=== PATIENT | male | born 1970 | race Caucasian/White ===

== ENCOUNTER 2018-07-26 14:03 | Emergency (ER) | payer BC ==
[2018-07-26] MEDS ORDERED: Sodium Chloride 0.9% 10 ML Syringe FLUSH PRN (14:10)
[2018-07-26] MEDS ORDERED: Sodium Chloride 0.9% 2.5 ML Syringe FLUSH PRN (14:10)
[2018-07-26 14:55] LABS: CHLORIDE,CL 106 mmol/L (98-107); SODIUM,NA 143 mmol/L (136-148)
--- NOTE | 2018-07-26 15:38 | CR ---
INDICATION: Pain/shortness of breath. TECHNIQUE: AP portable chest x-ray. FINDINGS: Plate and screw fixation lower cervical spine. Heart size normal. Shallow inspiration. No focal infiltrate or consolidation in either lung. Minimal eventration right hemidiaphragm. Fat pad lateral lower cardiac border. Remainder negative. Dictated by Kervin Ochoa MD @ Jul 26 2018 3:37PM Signed by Dr. Kervin Ochoa @ Jul 26 2018 3:37PM
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
[2018-07-26] MEDS ORDERED: Iopamidol 755 MG/ML 500 ML Multipack Bottle IVPUSH STA (17:20)
--- NOTE | 2018-07-27 11:39 | CT ---
EXAM DATE: 07/26/18 PATIENT'S AGE: 48 Patient: BUBBA VERDIN Facility: [facility] Site Site : [id number] Study: CT-Abdomen/Pelvis W CONT [id number]/12/2019 3:53:11 PM Ordering Physician: ALDEN TITUS MD Final Report: INDICATION: Pain. Pain in right mid abdomen for 3 weeks. TECHNIQUE: CT of the abdomen and pelvis performed after the IV injection of 100 mL of Isovue 370 FINDINGS: Moderate compression anterior wedging T12 vertebral body likely chronic. Moderate diffuse fatty infiltration of liver. Focal nodular fatty sparing in the liver adjacent to gallbladder. Mild wall thickening involving the distal esophagus nonspecific but may be inflammatory. Small low-density lesion inferior posterior spleen. Tiny cyst in the left kidney. Small periumbilical hernia in the lower anterior abdominal/upper anterior pelvic wall containing only fat. Colonic diverticulosis without evidence diverticulitis. Mild hazy increased density in the central abdominal mesentery consistent with a panniculitis. Moderate wall thickening involving the urinary bladder may be related to incomplete distention. Appendix is normal. Small lymph nodes in the right lower quadrant mesentery should be reactive in nature. Remainder negative. IMPRESSION: 1. No acute disease and abdomen or pelvis. 2. Mild wall thickening involving the distal esophagus may be inflammatory. 3. Colonic diverticulosis without evidence diverticulitis. 4. Small ventral abdominal/pelvic wall hernia in the periumbilical region containing only fat. Other findings as above. Please note that all CT scans at this facility use dose modulation, iterative reconstruction, and/or weight-based dosing when appropriate to reduce radiation dose to as low as reasonably achievable. Dictated by Kervin Ochoa MD @ Jul 26 2018 4:06PM Signed by: Kervin Ochoa MD @07/26/2018 4:13:25 PM (Electronic Signature) Report Signed by Proxy. CHRIS
== END 2018-07-26 17:02 | disposition home or self-care (01) ==
LOC: MW.ED 14:03
DX: R10.31 Right lower quadrant pain (principal); R10.11 Right upper quadrant pain; I10 Essential (primary) hypertension; I25.2 Old myocardial infarction
CPT/HCPCS: 71045; 74177; 80053; 81003; 83690; 83880; 84484; 85025; 93005; 99285; Q9967

== ENCOUNTER 2018-08-18 09:45 | Day surgery (SDC) | payer BC ==
[~2018-08-18 09:45] MED LIST: Lactated Ringers 1,000 ML IV SCH; Midazolam 1 MG/ML 2 ML SDV ONE; Propofol 200 MG/20 ML SDV ONE; Sodium Chloride 0.9% 10 ML SDV IV PRN; Sodium Chloride 0.9% 10 ML Syringe FLUSH PRN; Sodium Chloride 0.9% 2.5 ML Syringe FLUSH PRN; fentaNYL 100 MCG/2 ML SDV ONE
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
[2018-08-18] MEDS ORDERED: Propofol 200 MG/20 ML SDV ONE (13:12)
--- NOTE | 2018-08-18 13:58 | PCM.OPNOTE ---
- General Post-Op/Procedure Note Date of Surgery/Procedure: 08/18/18 Operative Procedure(s): Diagnostic EGD and colonoscopy Findings: Extensive diverticulosis throughout the colon. Hepatic flexure polyp. Sigmoid colon polyp. Normal EGD Pre Op Diagnosis: Epigastric abdominal pain, diverticulosis, mesenteric adenitis Post-Op Diagnosis: Diverticulosis, hepatic flexure polyp, sigmoid colon polyp [place]est[place] [facility] [place]geon: Eda Adams Condition: Good
[2018-08-18] MEDS ORDERED: Acetaminophen/oxyCODONE 325-5 MG Tab PO PRN (14:30)
--- NOTE | 2018-08-18 14:48 | OR ---
SURGEON: EDA ADAMS MD DATE OF PROCEDURE: 08/18/2018 PREOPERATIVE DIAGNOSIS: Abdominal pain. POSTOPERATIVE DIAGNOSES: 1. Hepatic flexure polyp. 2. Sigmoid colon polyp. 3. Diverticulosis. PROCEDURE PERFORMED: Diagnostic esophagogastroduodenoscopy and colonoscopy. PRIMARY SURGEON: Endoscopist, Eda Adams MD. ANESTHESIA: MAC. INSTRUMENT USED: Olympus endoscope and colonoscope. EXTENT OF EXAM: To the second portion of duodenum, to the cecum. PREPARATION: Good. LIMITATIONS: None. INDICATION FOR EXAMINATION: The patient is a 48-year-old male who presents with abdominal pain. He underwent a workup in the ER, which showed evidence of diverticulosis, but no other acute intraabdominal process. He recently underwent a right upper quadrant ultrasound that showed no evidence of cholelithiasis or acute cholecystitis. Given these findings, the decision was made to proceed with a diagnostic EGD and colonoscopy. The patient and I discussed the procedure, expected perioperative course, and risks including bleeding, infection, or damage to surrounding structures including perforation. The patient verbalized understanding and wishes to proceed. PROCEDURE IN DETAIL: The patient was brought into the endoscopy suite and placed in the left lateral decubitus position. A time-out was completed verifying the patient's name, age, date of , allergies, and procedure to be performed. Monitored anesthesia care was induced and continuous oxygen was provided via nasal cannula throughout the procedure. A bite block was placed in the patient's mouth. After adequate sedation was achieved, a well lubricated endoscope was placed in the patient's mouth and advanced under direct visualization to the second portion of duodenum. This appeared normal and a photograph was taken. The scope was then fully withdrawn while examining the color, texture, anatomy, and integrity of the mucosa of the upper GI tract. The duodenal mucosa appeared grossly normal. A biopsy was taken in the duodenal bulb with a cold biopsy forceps and sent to pathology. The scope was then brought into the stomach and a photograph was taken of the pylorus and the GE junction. Both appeared grossly normal. The gastric mucosa was free of inflammation or ulceration. Biopsies were taken of the gastric antrum, body, and fundus, and sent for histologic review and H. pylori testing. The scope was then brought into the distal esophagus and a photograph was taken of the GE junction. This appeared normal. The scope was then fully withdrawn and there was no evidence of any pathology within the esophageal mucosa. A biopsy was taken of the esophageal mucosa given the CT findings of questionable lower esophageal wall thickening. The scope was removed and this portion of procedure was terminated. A digital rectal exam was performed. This exam was within normal limits. A well lubricated colonoscope was inserted into the rectum and advanced under direct visualization to the level of the cecum. Cecum was identified by both visual and anatomic landmarks. A photograph was taken of the cecal cap as well as the scope retroflexed within the cecum. The scope was then fully withdrawn while examining the color, texture, anatomy, and integrity of the mucosa from the cecum to the anal canal. The patient had extensive diverticulosis throughout the colon. At the hepatic flexure, there was a small sessile polyp. I tried removing this with a snare; however, given how flat and sessile it was, I was unable to do so. It was removed in piecemeal fashion using a cold biopsy forceps. The patient also had a small polyp in the distal sigmoid colon. This was removed using a cold biopsy forceps as well. The scope was then brought into the rectum and retroflexed to allow visualization of the anal canal opening. This appeared normal and a photograph was taken. The scope was then straightened out and fully withdrawn. The cecum to anus time was greater than 20 minutes. The patient tolerated the procedure well and was transferred to the PACU in stable condition. ENDOSCOPIC DIAGNOSES: 1. Hepatic flexure polyp. 2. Sigmoid colon polyp. 3. Diverticulosis. RECOMMENDATIONS: The patient will undergo a HIDA scan to check gallbladder function. If this is normal, I will repeat his CT scan and make the next decision and treatment from there. MONA MORIN /[id number]
[2018-08-18] MEDS ORDERED: Metoclopramide 10 MG/2 ML SDV ONE (15:12)
--- NOTE | 2018-08-18 16:22 | CT ---
INDICATION: Right upper quadrant abdomen pain. Status post EGD and colonoscopy. TECHNIQUE: CT abdomen and pelvis without contrast. COMPARISON: July 26, 2018. FINDINGS: Lower chest: Unremarkable. Liver: There is diffuse fatty infiltration. Otherwise unremarkable. Gallbladder and bile ducts: No stones or inflammation. No biliary dilatation. Pancreas: Unremarkable. No mass or inflammation. Spleen: Normal in size. No masses. Adrenal glands: Normal in size. No nodules. Kidneys: Normal in size. No masses, stones, or hydronephrosis. GI tract: There is moderate diverticulosis and mild gaseous distention of the colon. Small bowel is unremarkable. Normal appendix. Vasculature: Unremarkable. Lymph nodes: No lymphadenopathy. Abdominal wall/Omentum/Peritoneum: There is a relatively small fat containing umbilical hernia which is unchanged. No other hernias. No masses. No fluid collection or free air. Pelvis: Unremarkable. No pelvic masses. Bones: Mild compression deformity of the T12 vertebral body is unchanged. Otherwise unremarkable. IMPRESSION: Moderate gaseous distention of the colon. No sign of bowel perforation or other acute or specific finding to explain abdominal pain. No other significant change from the prior exam. Please note that all CT scans at this facility use dose modulation, iterative reconstruction, and/or weight-based dosing when appropriate to reduce radiation dose to as low as reasonably achievable. Dictated by Jay Ron MD @ Aug 18 2018 4:07PM Signed by Dr. Jay Ron @ Aug 18 2018 4:21PM
--- NOTE | 2018-08-18 16:30 | PCM48HPAN ---
Post Anesthesia Note - EVALUATION WITHIN 48HRS OF ANESTHETIC Vital Signs in Normal Range: Yes Patient Participated in Evaluation: Yes Respiratory Function Stable: Yes Airway Patent: Yes Cardiovascular Function Stable: Yes Hydration Status Stable: Yes Pain Control Satisfactory: Yes Nausea and Vomiting Control Satisfactory: Yes Mental Status Recovered: Yes Resp Rate: 15 - COMMENTS/OBSERVATIONS Free Text/Narrative:: Patient was c/o of abdominal pain and was pending results of CT scan of abdomen. Per MANOLO Arnold the CT scan came back normal and the patient may be discharged according to Dr. Adams. VSS.
== END 2018-08-18 16:25 | disposition home or self-care (01) ==
LOC: MW.SDS 09:45
PROVIDERS: ATTEND Surgery
DX: K29.50 Unspecified chronic gastritis without bleeding (principal); K22.8 Other specified diseases of esophagus; K63.5 Polyp of colon; K57.30 Diverticulosis of large intestine without perforation or abscess without bleeding; K65.4 Sclerosing mesenteritis; Z87.891 Personal history of nicotine dependence; Z79.899 Other long term (current) drug therapy
CPT/HCPCS: 43239; 45385; 74176; J2001; J2250; J2704; J2765; J3010; J7120; 88305; 88312

== ENCOUNTER 2018-10-22 06:30 | Day surgery (SDC) | payer BC ==
[~2018-10-22 06:30] MED LIST changes: -Midazolam 1 MG/ML 2 ML SDV ONE; -Propofol 200 MG/20 ML SDV ONE; +ceFAZolin 2 GM in Premix Bag 1 BAG IV ONE; -fentaNYL 100 MCG/2 ML SDV ONE
[2018-10-22] MEDS ORDERED: Bupivacaine 0.5% 10 ML SDV ONE (07:07)
[2018-10-22] MEDS ORDERED: Midazolam 1 MG/ML 2 ML SDV ONE (07:07)
[2018-10-22] MEDS ORDERED: Propofol 200 MG/20 ML SDV ONE (07:07)
[2018-10-22] MEDS ORDERED: Ondansetron 4 MG/2 ML SDV ONE (07:07)
[2018-10-22] MEDS ORDERED: fentaNYL 250 MCG/5 ML SDV ONE (07:07)
[2018-10-22] MEDS ORDERED: Lidocaine 2% 5 ML SDV ONE (07:07)
[2018-10-22] MEDS ORDERED: Glycopyrrolate 0.2 MG/ML SDV ONE ×2 (07:07→08:07)
[2018-10-22] MEDS ORDERED: Neostigmine Methylsulfate 1 MG/ML 5 ML Syringe ONE (07:07)
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
[2018-10-22] MEDS ORDERED: ceFAZolin 1 GM Vial ONE (07:46)
[2018-10-22] MEDS ORDERED: Sodium Chloride 0.9% 20 ML ONE (07:46)
[2018-10-22] MEDS ORDERED: ePHEDrine 50 MG/ML SDV ONE (07:52)
[2018-10-22] MEDS ORDERED: Phenylephrine/Normal Saline 100 MCG/ML 10 ML Syringe ONE (07:55)
[2018-10-22] MEDS ORDERED: fentaNYL 100 MCG/2 ML SDV ONE (08:22)
[2018-10-22] MEDS ORDERED: Albuterol 0.083% 2.5 MG/3 ML Neb Soln NEB PRN (08:39)
[2018-10-22] MEDS ORDERED: Atropine 0.1 MG/ML 10 ML Syringe IVPUSH PRN ×2 (08:39)
[2018-10-22] MEDS ORDERED: Naloxone 0.4 MG/ML Syringe IVPUSH PRN (08:39)
[2018-10-22] MEDS ORDERED: EPINEPHrine 1:10,000 1 MG/10 ML Syringe IVPUSH PRN (08:39)
[2018-10-22] MEDS ORDERED: 50% Dextrose in Water 50 ML Syringe IVPUSH PRN (08:39)
--- NOTE | 2018-10-22 09:13 | PCM.OPNOTE ---
- General Post-Op/Procedure Note Date of Surgery/Procedure: 10/22/18 Operative Procedure(s): laproscopic cholecystectomy Findings: inflamed gallbladder Pre Op Diagnosis: biliary dyskinesia Post-Op Diagnosis: biliary dyskinesia and inflamed gallbladder Anesthesia Technique: General ET Tube Primary Surgeon: Eda Adams Pathology: gallbladder Fluid Replacement, Intraop: 1,500 Output, Urine Amount: 200 EBL in mLs: 10 Condition: Good
[2018-10-22] MEDS ORDERED: Acetaminophen 1,000 MG in Premix Bag 1 BAG IV ONE (09:50)
[2018-10-22] MEDS ORDERED: Promethazine 25 MG/ML SDV IM ONE (10:25)
[2018-10-22] MEDS: fentaNYL 100 MCG/2 ML SDV IVPUSH PRN ×2 (10:27→10:37)
[2018-10-22] MEDS ORDERED: Acetaminophen/oxyCODONE 325-5 MG Tab PO PRN (10:33)
[2018-10-22] MEDS ORDERED: diphenhydrAMINE 50 MG/ML SDV ONE (10:50)
[2018-10-22] MEDS ORDERED: diphenhydrAMINE 50 MG/ML SDV IVPUSH ONE (10:51)
--- NOTE | 2018-10-22 11:06 | PCM.POSTAN ---
POST ANESTHESIA ASSESSMENT - MENTAL STATUS Mental Status: Alert, Oriented - RESPIRATORY Respiratory Status: Respiratory Rate WNL, Airway Patent, O2 Saturation Stable - CARDIOVASCULAR CV Status: Pulse Rate WNL, Blood Pressure Stable - GASTROINTESTINAL GI Status: No Symptoms - PAIN Pain Score: 3 - POST OP HYDRATION Hydration Status: Adequate & Stable - OBSERVATIONS Free Text/Narrative:: no anesthesia problems
--- NOTE | 2018-10-22 14:27 | OR ---
SURGEON: EDA HOLGUIN MD DATE OF PROCEDURE: 10/22/2018 PREOPERATIVE DIAGNOSIS: Biliary dyskinesia. POSTOPERATIVE DIAGNOSIS: Biliary dyskinesia. PROCEDURE PERFORMED: Laparoscopic cholecystectomy. PRIMARY SURGEON: Eda Holguin MD. MEDICAL CODING AUDITOR: physical therapy assistant instructor: Vee Butterfield DO. ANESTHESIA: General endotracheal anesthesia. FLUIDS: 1500 mL of crystalloid. ESTIMATED BLOOD LOSS: 10 mL. URINE OUTPUT: 200 mL. FINDINGS: Mildly inflamed gallbladder. COMPLICATIONS: None. INDICATIONS: The patient is a 48-year-old male, who presents with right upper quadrant pain. After an extensive workup, he underwent a HIDA scan that showed an ejection fraction of 40%. The patient states that this test reproduced his symptoms. The decision was made to proceed with a laparoscopic cholecystectomy. The patient and I discussed the surgery; expected perioperative course; and risks including bleeding, infection, or damage to surrounding structures including perforation. The patient verbalized understanding and wishes to proceed. PROCEDURE IN DETAIL: The patient was brought in the OR and placed on the OR table in supine position. A time-out was completed verifying the patient's name, age, date of , allergies, and procedure to be performed. General endotracheal anesthesia was induced. A Olivo catheter was placed and the left arm was tucked to the patient's side. The abdomen was prepped and draped in usual standard fashion. Given the patient's body habitus, the decision was made to make my initial trocar incision in the supraumbilical area. I anesthetized this with 0.5% Marcaine plain. An 11 blade was used to make an incision just above the umbilical fold. Cautery was used to dissect down to the level of subcutaneous fat. I bluntly dissected down to level of fascia. The fascia was elevated with Erwin's and incised sharply with curved Buck scissors. Entry into the abdomen was palpated digitally. Stay sutures were placed on either side of the fascia using 0 Vicryl suture. A 12 mm Naya trocar was placed in the abdomen and insufflation was obtained. I inserted a 5 mm 30-degree scope into the abdomen and inspected the area underneath my initial trocar placement. No damage to surrounding structures was noted. The patient was placed into reverse Trendelenburg position and airplaned slightly to the left. 5 mm trocars were placed in the following locations under direct visualization, one in the epigastric area, one in the right flank, and one 2 fingerbreadths below the right subcostal margin in the midclavicular line. The dome of the gallbladder was grasped with an atraumatic grasper and lifted cranially. The patient had some inflamed appearing fat around the infundibulum. This was taken down using hook cautery and blunt dissection. There was some mild inflammation around this area. I started my dissection distally and cleared off 1/3rd of the cystic plate. This then allowed me with greater mobilization, and I was able to then dissect out my cystic duct and artery. I doubly clipped and ligated the cystic duct and artery. The patient had several small branching veins. A couple of these were clipped and ligated. The gallbladder was then taken off the gallbladder fossa using electrocautery. It was then placed in an EndoCatch bag and removed through the supraumbilical port site. I inspected my operative field. There was a small amount of oozing around the proximal cystic plate. Surgicel and endoscopic Avitene were placed in the area and hemostasis was achieved. I irrigated the abdomen with 500 mL of normal saline and suctioned this out. The 5 mm trocars were removed under direct visualization. The abdomen allowed to desufflate. The 12 mm trocar was removed. The fascia at the supraumbilical port site was closed with interrupted 0 Vicryl sutures. The subcutaneous fat layer was closed with interrupted 3-0 Vicryl sutures. The skin was closed with a running 4-0 Monocryl stitch. The 5 mm trocar sites were closed with interrupted 4-0 Monocryl sutures. Steri-Strips and sterile dressings were applied. The patient tolerated the procedure well and was taken to PACU in stable condition. All counts were complete and correct at the end of the case. MONA MORIN /[id number]
== END 2018-10-22 12:50 | disposition home or self-care (01) ==
LOC: MW.SDS 06:30
PROVIDERS: ATTEND Surgery
DX: K81.1 Chronic cholecystitis (principal); I10 Essential (primary) hypertension; I25.2 Old myocardial infarction; K44.9 Diaphragmatic hernia without obstruction or gangrene; K22.4 Dyskinesia of esophagus; Z79.899 Other long term (current) drug therapy
CPT/HCPCS: 47562; 88304; A9270; J0131; J0690; J2001; J2250; J2370; J2405; J2550; J3010; J3490; J7120; 00790; J2704

== ENCOUNTER 2023-04-05 17:51 | Observation (INO) | payer BC ==
[2023-04-05] MEDS ORDERED: Labetalol 100 MG/20 ML MDV IVPUSH ONE (18:18)
[2023-04-05 18:22] LABS: BASOPHILS ABSOLUTE AUTO 0.05 K/uL (0.00-0.20); BASOPHILS PERCENT AUTO 0.6 % (0.0-1.0); EOSINOPHILS ABSOLUTE AUTO 0.46 K/uL (0.00-0.45); EOSINOPHILS PERCENT AUTO 5.3 % (0.0-6.0); HEMATOCRIT 42.4 % (42.0-52.0); HEMOGLOBIN 14.8 g/dL (14.0-18.0); IMMATURE GRAN ABSOLUTE AUTO 0.03 K/uL (0.00-0.05); IMMATURE GRAN PERCENT AUTO 0.3 % (0.0-0.4); LYMPHOCYTES ABSOLUTE AUTO 2.77 K/uL (1.00-4.80); LYMPHOCYTES PERCENT AUTO 31.9 % (24.0-44.0); MEAN CORPUSCULAR HEMOGLOBIN 31.8 pg (28.0-32.0); MEAN CORPUSCULAR HGB CONC 34.9 g/dL (32.0-36.0); MEAN CORPUSCULAR VOLUME 91.2 fL (83.0-99.0); MEAN PLATELET VOLUME 10.3 fL (9.4-12.4); MONOCYTES PERCENT AUTO 5.8 % (0.0-8.0); NEUTROPHILS ABSOLUTE AUTO 4.88 K/uL (1.80-7.70); NEUTROPHILS PERCENT AUTO 56.1 % (41.0-71.0); PLATELET COUNT,PLT 260 K/uL (150-400); RED BLOOD CELL COUNT 4.65 M/uL (4.52-5.90); WHITE BLOOD CELL COUNT,WBC 8.69 K/uL (3.9-11.3)
[2023-04-05 18:33] LABS: INR 0.96 (0.86-1.11); PTT,PARTIAL THROMBOPLSTIN TIME 27.2 SEC (23.9-30.7)
[2023-04-05 18:35] LABS: A/G RATIO 0.9 (0.9-1.6); ALBUMIN 3.7 g/dL (3.4-5.0); BILIRUBIN TOTAL 0.4 mg/dL (0.2-1.0); CALCIUM 8.9 mg/dL (8.5-10.1); CARBON DIOXIDE,CO2 22.8 mmol/L (21.0-32.0); CREATININE 1.1 mg/dL (0.8-1.3); EST CRCL DRUG DOSING (CG) 79.27 mL/min; MAGNESIUM 1.8 mg/dL (1.8-2.4); POTASSIUM,K 4.4 mmol/L (3.5-5.1); PROTEIN TOTAL,TP 7.9 g/dL (6.4-8.2)
[2023-04-05 18:58] LABS: TSH ULTRASENSITIVE 2.91 uIU/mL (0.36-3.74)
[2023-04-05] MEDS ORDERED: Meclizine 25 MG Tab PO ONE (19:28)
[2023-04-05 19:29] LABS: APPEARANCE,URINE CLEAR; BILIRUBIN,URINE NEGATIVE (NEGATIVE); COLOR,URINE YELLOW; GLUCOSE,URINE NEGATIVE (NEGATIVE); KETONES,URINE NEGATIVE (NEGATIVE); LEUKOCYTE ESTERASE,URINE NEGATIVE (NEGATIVE); NITRITE,URINE NEGATIVE (NEGATIVE); OCCULT BLOOD,URINE TRACE-INTACT (NEGATIVE); PROTEIN,URINE NEGATIVE (NEGATIVE); UROBILINOGEN,URINE 0.2 EU/dL (<2.0)
[2023-04-05 19:59] LABS: BACTERIA,URINE FEW (NEGATIVE); EPITHELIAL CELLS,URINE NOT SEEN (NONE-FEW); MUCUS,URINE LIGHT (NONE-MOD); WBC,URINE 0-2 (0-5/HPF)
[2023-04-05] MEDS ORDERED: Lisinopril 5 MG Tab PO ONE (22:14)
[2023-04-06 06:10] LABS: BASOPHILS ABSOLUTE AUTO 0.06 K/uL (0.00-0.20); EOSINOPHILS ABSOLUTE AUTO 0.44 K/uL (0.00-0.45); EOSINOPHILS PERCENT AUTO 7.3 % (0.0-6.0); HEMATOCRIT 38.1 % (42.0-52.0); HEMOGLOBIN 13.2 g/dL (14.0-18.0); IMMATURE GRAN ABSOLUTE AUTO 0.04 K/uL (0.00-0.05); IMMATURE GRAN PERCENT AUTO 0.7 % (0.0-0.4); LYMPHOCYTES ABSOLUTE AUTO 2.11 K/uL (1.00-4.80); LYMPHOCYTES PERCENT AUTO 34.8 % (24.0-44.0); MEAN CORPUSCULAR HEMOGLOBIN 32.4 pg (28.0-32.0); MEAN CORPUSCULAR HGB CONC 34.6 g/dL (32.0-36.0); MEAN CORPUSCULAR VOLUME 93.6 fL (83.0-99.0); MEAN PLATELET VOLUME 10.2 fL (9.4-12.4); MONOCYTES ABSOLUTE AUTO 0.55 K/uL (0.00-0.80); MONOCYTES PERCENT AUTO 9.1 % (0.0-8.0); NEUTROPHILS ABSOLUTE AUTO 2.86 K/uL (1.80-7.70); NEUTROPHILS PERCENT AUTO 47.1 % (41.0-71.0); PLATELET COUNT,PLT 225 K/uL (150-400); RED BLOOD CELL COUNT 4.07 M/uL (4.52-5.90); WHITE BLOOD CELL COUNT,WBC 6.06 K/uL (3.9-11.3)
[2023-04-06 06:30] LABS: CALCIUM 8.6 mg/dL (8.5-10.1); CARBON DIOXIDE,CO2 25.7 mmol/L (21.0-32.0); CREATININE 0.9 mg/dL (0.8-1.3); EST CRCL DRUG DOSING (CG) 96.88 mL/min
[2023-04-06] MEDS ORDERED: Acetaminophen 325 MG Tab PO PRN (10:43)
== END 2023-04-06 14:10 | disposition home or self-care (01) ==
LOC: MW.ED 17:51 → MW.MS 19:30
PROVIDERS: ADMIT Internal Medicine; ATTEND Internal Medicine
DX: I16.1 Hypertensive emergency (principal); I10 Essential (primary) hypertension; I25.10 Atherosclerotic heart disease of native coronary artery without angina pectoris; I25.2 Old myocardial infarction; K21.9 Gastro-esophageal reflux disease without esophagitis; Z86.16 Personal history of COVID-19; Z79.899 Other long term (current) drug therapy
CPT/HCPCS: 36415; 70450; 71045; 80048; 80053; 81001; 83036; 83735; 83880; 84443; 84484; 85025; 85610; 85730; 93005; 96374; 99285; A9270; G0378; J1921; 93010

== ENCOUNTER 2024-03-06 00:20 | Emergency (ER) | payer BC ==
[2024-03-06] MEDS: Aspirin 81 MG Tab.Chew PO ONE (00:54)
[2024-03-06] MEDS: Nitroglycerin 0.4 MG Tab.SL SL PRN (00:57)
[2024-03-06 00:58] LABS: BASOPHILS ABSOLUTE AUTO 0.08 K/uL (0.00-0.20); BASOPHILS PERCENT AUTO 0.8 % (0.0-1.0); EOSINOPHILS ABSOLUTE AUTO 0.52 K/uL (0.00-0.45); EOSINOPHILS PERCENT AUTO 5.3 % (0.0-6.0); HEMATOCRIT 41.4 % (42.0-52.0); HEMOGLOBIN 14.5 g/dL (14.0-18.0); IMMATURE GRAN ABSOLUTE AUTO 0.06 K/uL (0.00-0.05); IMMATURE GRAN PERCENT AUTO 0.6 % (0.0-0.4); LYMPHOCYTES ABSOLUTE AUTO 3.67 K/uL (1.00-4.80); LYMPHOCYTES PERCENT AUTO 37.7 % (24.0-44.0); MEAN CORPUSCULAR HEMOGLOBIN 32.3 pg (28.0-32.0); MEAN CORPUSCULAR VOLUME 92.2 fL (83.0-99.0); MEAN PLATELET VOLUME 10.6 fL (9.4-12.4); MONOCYTES ABSOLUTE AUTO 0.82 K/uL (0.00-0.80); MONOCYTES PERCENT AUTO 8.4 % (0.0-8.0); NEUTROPHILS ABSOLUTE AUTO 4.59 K/uL (1.80-7.70); NEUTROPHILS PERCENT AUTO 47.2 % (41.0-71.0); PLATELET COUNT,PLT 261 K/uL (150-400); RED BLOOD CELL COUNT 4.49 M/uL (4.52-5.90); WHITE BLOOD CELL COUNT,WBC 9.74 K/uL (3.9-11.3)
[2024-03-06] MEDS: Sodium Chloride 0.9% 10 ML Syringe FLUSH PRN (01:00)
[2024-03-06] MEDS: Sodium Chloride 0.9% 2.5 ML Syringe FLUSH PRN (01:00)
[2024-03-06 01:18] LABS: BILIRUBIN TOTAL 0.5 mg/dL (0.2-1.0); CALCIUM 9.3 mg/dL (8.5-10.1); CREATININE 1.2 mg/dL (0.8-1.3); EST CRCL DRUG DOSING (CG) 72.66 mL/min; MAGNESIUM 1.8 mg/dL (1.8-2.4); POTASSIUM,K 4.6 mmol/L (3.5-5.1); PROTEIN TOTAL,TP 8.2 g/dL (6.4-8.2)
[2024-03-06] MEDS: Alum Hydrox/Mag Hydrox/Simeth 15 ML, Lidocaine 2% 5 ML PO ONE (01:28)
[2024-03-06] MEDS: Famotidine 20 MG/2 ML SDV IVPUSH ONE (01:29)
[2024-03-06] MEDS: Ketorolac 30 MG/ML SDV IVPUSH STA (02:40)
[2024-03-06 04:02] LABS: APPEARANCE,URINE CLEAR; BILIRUBIN,URINE NEGATIVE (NEGATIVE); GLUCOSE,URINE 100 mg/dL (NEGATIVE); KETONES,URINE NEGATIVE (NEGATIVE); LEUKOCYTE ESTERASE,URINE NEGATIVE (NEGATIVE); NITRITE,URINE NEGATIVE (NEGATIVE); OCCULT BLOOD,URINE NEGATIVE (NEGATIVE); PH,URINE 5.5 (5.0-8.0); PROTEIN,URINE 30 mg/dL (NEGATIVE); UROBILINOGEN,URINE 0.2 EU/dL (<2.0)
[2024-03-06 04:08] LABS: COLOR,URINE DARK YELLOW
[2024-03-06 04:11] LABS: BACTERIA,URINE FEW (NEGATIVE); EPITHELIAL CELLS,URINE OCCASIONAL (NONE-FEW); RBC,URINE 0-1 (0-2/HPF); WBC,URINE 0-1 (0-5/HPF)
[2024-03-06] MEDS: Heparin Sodium 5,000 Units/ML Vial IVPUSH ONE (04:11)
[2024-03-06] MEDS: Heparin Sodium/0.45% NaCl 25,000 UNITS/250 ML BAG IV SCH (04:12)
[2024-03-06] MEDS: atorvaSTATin 40 MG Tab PO ONE (04:28)
== END 2024-03-06 07:57 ==
LOC: MW.ED 00:20
DX: I21.4 Non-ST elevation (NSTEMI) myocardial infarction (principal); I10 Essential (primary) hypertension; I25.2 Old myocardial infarction; F17.210 Nicotine dependence, cigarettes, uncomplicated; Z86.16 Personal history of COVID-19
CPT/HCPCS: 36415; 71045; 80053; 81001; 83690; 83735; 83880; 84484; 85025; 85379; 85730; 93005; 96365; 96366; 96375; 99285; A9270; J1644; J1885; J3490; 93010